=== PATIENT | male | born 1995 | race Caucasian/White ===

== ENCOUNTER 2020-12-18 05:09 | Emergency (ER) | payer SELFPAY ==
[~2020-12-18] VITALS: Ht 182.9 cm; Wt 85.7 kg
[2020-12-18] MEDS ORDERED: SODIUM CHLORIDE FLUSH 10ML SYR IVF ONE (05:30)
[2020-12-18] MEDS ORDERED: HYDROmorphone 1 MG/ML, 1ML INJ IV ONE (05:30)
[2020-12-18] MEDS ORDERED: ONDANSETRON 2MG/ML, 2ML IVPush ONE (05:30)
[2020-12-18] MEDS ORDERED: HYDROmorphone 1 MG/ML, 1ML INJ ONE (05:44)
[2020-12-18] MEDS ORDERED: ONDANSETRON 2MG/ML, 2ML ONE (05:45)
[2020-12-18 06:09] LABS: MICROSCOPIC INDICATED
[2020-12-18 07:12] VITALS: BP 98/45
--- NOTE | 2020-12-18 07:14 | NUR ---
IV removed with tip intact. Patient given discharge instructions and prescription and they have confirmed that they understand the instructions. Controlled substance contract signed. Patient stable and ambulatory with steady gait from ED to private vehicle.
== END 2020-12-18 07:15 | disposition home or self-care (01) ==
LOC: ED 06:24
DX: N20.2 Calculus of kidney with calculus of ureter (principal); R31.9 Hematuria, unspecified
CPT/HCPCS: 74176; 81001; 96374; 96375; 99284; J1170; J2405